=== PATIENT | male | born 1985 | race Caucasian/White ===

== ENCOUNTER → 2023-11-01 | Outpatient (CLI) | payer OTHER ==
[~2023-11-01] MED LIST: BUPR150T12; LAMO25TA4
== END ==
LOC: M RAD 08:19
PROVIDERS: ATTEND Internal Medicine Hematology & Oncology
DX: D64.9 Anemia, unspecified (principal); K82.4 Cholesterolosis of gallbladder; K76.0 Fatty (change of) liver, not elsewhere classified; R16.1 Splenomegaly, not elsewhere classified; I77.811 Abdominal aortic ectasia

== ENCOUNTER 2024-01-15 13:19 | Emergency (ER) | payer OTHER ==
[~2024-01-15] VITALS: Ht 185.4 cm; Wt 78.3 kg
[~2024-01-15 13:19] MED LIST changes: -BUPR150T12; +BUPR150T12 PO; +COPP2CAP PO; +FERR325T3 PO; -LAMO25TA4; +LAMO25TA4 PO
[2024-01-15 13:21] VITALS: BP 138/82; TEMP 98.6; O2SAT 96
[2024-01-15] MEDS ORDERED: THERTAB52 PO (15:03)
[2024-01-15] MEDS ORDERED: FERR325T3 PO (15:03)
[2024-01-15] MEDS ORDERED: HOME MED LIST COMPLETE! XX SCH ×2 (15:05)
== END 2024-01-15 16:50 | disposition home or self-care (01) ==
LOC: M ED 13:19
DX: F32.A Depression, unspecified (principal); K21.9 Gastro-esophageal reflux disease without esophagitis; K50.90 Crohn's disease, unspecified, without complications; D64.9 Anemia, unspecified; D72.819 Decreased white blood cell count, unspecified; F41.9 Anxiety disorder, unspecified; Z79.899 Other long term (current) drug therapy; Z88.0 Allergy status to penicillin; Z88.1 Allergy status to other antibiotic agents